=== PATIENT | female | born 1955 | race Caucasian/White ===

== ENCOUNTER 2016-06-16 08:34 | Inpatient (IN) | payer BC ==
[2016-06-16] VITALS (7 sets, daily range): BP systolic 125–174; BP diastolic 68–107; PULSE 80–107; RESP 16–22; TEMP 98–98.6; O2SAT 93–97
[~2016-06-16] VITALS: Ht 167.6 cm; Wt 120.0 kg
--- NOTE | 2016-06-16 08:57 | PD ---
HPI Chief Complaint: Flank/Kidney Pain Time Seen by Provider: 08:52 Travel History International Travel<30 days: No Contact w/Intl Traveler<30days: No Traveled to known affect area: No History of Present Illness HPI Patient is a 60-year-old female who presents to emergency room with complaints of left-sided flank pain. Patient reports that she woke up around 4 AM this morning with pain to her left flank. Patient reports that symptoms feel sharp and stabbing, symptoms are nonradiating in nature. Patient reports that she has been having nausea and vomiting with her pain. Patient denies constipation or diarrhea. Patient denies fevers, reports chills. Patient reports history of kidney stones in the past, reports that she had a right-sided kidney stone for very long time which ultimately required lithotripsy. Patient with no chest pain or shortness breath. Patient with no other complaints. PFSH Past Medical History Diminished Hearing: No Kidney Stones: Yes Tetanus Vaccination: Unknown ?: Not Past Surgical History Other Surgery: Yes (lithotripsy) Family History Family History: Social History Alcohol Use: No Tobacco Use: Yes (1 PPD) Substance Use: No Allergies-Medications (Allergen,Severity, Reaction): Coded Allergies: No Known Allergies (Unverified , 06/16/16) Reported Meds & Prescriptions Reported Meds & Active Scripts Active No Active Prescriptions or Reported Medications Review of Systems General / Constitutional: No: Fever Eyes: No: Visual changes HENT: No: Headaches Cardiovascular: No: Chest Pain or Discomfort Respiratory: No: Shortness of Breath Gastrointestinal: Positive: Nausea, Vomiting, Abdominal Pain (left-sided flank pain) Genitourinary: No: Dysuria Musculoskeletal: No: Pain Skin: No Rash Neurologic: No: Weakness Psychiatric: No: Depression Endocrine: No: Polydipsia Hematologic/Lymphatic: No: Easy Bruising Physical Exam Narrative GENERAL: Patient in mild distress SKIN: Warm and dry. HEAD: Atraumatic. Normocephalic. EYES: Pupils equal and round. No scleral icterus. No injection or drainage. ENT: No nasal bleeding or discharge. Mucous membranes pink and moist. NECK: Trachea midline. No JVD. CARDIOVASCULAR: Regular rate and rhythm. No murmur appreciated. RESPIRATORY: No accessory muscle use. Clear to auscultation. Breath sounds equal bilaterally. GASTROINTESTINAL: Abdomen soft, non-tender, nondistended. Hepatic and splenic margins not palpable. MUSCULOSKELETAL: No obvious deformities. No clubbing. No cyanosis. No edema. Patient with left-sided flank pain NEUROLOGICAL: Awake and alert. No obvious cranial nerve deficits. Motor grossly within normal limits. Normal speech. PSYCHIATRIC: Appropriate mood and affect; insight and judgment normal. Data Data Last Documented VS Vital Signs Date Time Temp Pulse Resp B/P Pulse Ox O2 Delivery O2 Flow Rate FiO2 06/16/16 10:39 107 16 154/73 93 Nasal Cannula 3 06/16/16 08:44 98.6 Orders Urinalysis - C+S If Indicated (06/16/16 08:44) Complete Blood Count With Diff (06/16/16 08:58) Comprehensive Metabolic Panel (06/16/16 08:58) Lipase (06/16/16 08:58) Prothrombin Time / Inr (Pt) (06/16/16 08:58) Act Partial Throm Time (Ptt) (06/16/16 08:58) Ct Abd/Pel W/O Iv Contrast (06/16/16 08:58) Iv Access Insert/Monitor (06/16/16 08:58) Morphine Inj (Morphine Inj) (06/16/16 09:00) Ondansetron Inj (Zofran Inj) (06/16/16 09:00) Sodium Chlor 0.9% 1000 Ml Inj (Ns 1000 M (06/16/16 08:58) Sodium Chloride 0.9% Flush (Ns Flush) (06/16/16 09:00) Urine Culture (06/16/16 08:52) Ceftriaxone Inj (Rocephin Inj) (06/16/16 09:30) Ondansetron Inj (Zofran Inj) (06/16/16 10:15) Hydromorphone Pf Inj (Dilaudid Pf Inj) (06/16/16 10:15) Ketorolac Inj (Toradol Inj) (06/16/16 10:15) Labs Laboratory Tests Test 06/16/16 06/16/16 08:52 09:00 Urine Collection Type CLEAN CATCH Urine Color YELLOW Urine Turbidity MARKED Urine pH 5.5 Urine Specific [place] 1.032 Urine Protein 100 mg/dL Urine Glucose (UA) NEG mg/dL Urine Ketones 15 mg/dL Urine Occult Blood LARGE Urine Nitrite NEG Urine Bilirubin NEG Urine Leukocyte Esterase NEG Urine RBC 100-200 /hpf Urine WBC 3-5 /hpf Urine Squamous Epithelial 6-8 /hpf Cells Urine Amorphous Sediment MOD Urine Bacteria MOD /hpf Microscopic Urinalysis Comment CULTURE INDICATED Urine Collection Time 0852 White Blood Count 13.1 TH/MM3 Red Blood Count 5.20 MIL/MM3 Hemoglobin 14.7 GM/DL Hematocrit 45.0 % Mean Corpuscular Volume 86.5 FL Mean Corpuscular Hemoglobin 28.3 PG Mean Corpuscular Hemoglobin 32.7 % Concent Red Cell Distribution Width 13.3 % Platelet Count 346 TH/MM3 Mean Platelet Volume 7.9 FL Neutrophils (%) (Auto) 82.8 % Lymphocytes (%) (Auto) 9.9 % Monocytes (%) (Auto) 4.7 % Eosinophils (%) (Auto) 0.3 % Basophils (%) (Auto) 2.3 % Neutrophils # (Auto) 10.9 TH/MM3 Lymphocytes # (Auto) 1.3 TH/MM3 Monocytes # (Auto) 0.6 TH/MM3 Eosinophils # (Auto) 0.0 TH/MM3 Basophils # (Auto) 0.3 TH/MM3 CBC Comment DIFF FINAL Differential Comment Prothrombin Time 10.4 SEC Prothromb Time International 0.9 RATIO Ratio Activated Partial 26.8 SEC Thromboplast Time Sodium Level 143 MEQ/L Potassium Level 3.9 MEQ/L Chloride Level 107 MEQ/L Carbon Dioxide Level 25.4 MEQ/L Anion Gap 11 MEQ/L Blood Urea Nitrogen 17 MG/DL Creatinine 0.91 MG/DL Estimat Glomerular Filtration 63 ML/MIN Rate Random Glucose 151 MG/DL Calcium Level 9.2 MG/DL Total Bilirubin 0.4 MG/DL Aspartate Amino Transf 27 U/L (AST/SGOT) Alanine Aminotransferase 46 U/L (ALT/SGPT) Alkaline Phosphatase 105 U/L Total Protein 8.3 GM/DL Albumin 3.7 GM/DL Lipase 140 U/L [facility] Medical Decision Making Medical Screen Exam Complete: Yes Emergency Medical Condition: Yes Interpretation(s) Vital Signs Date Time Temp Pulse Resp B/P Pulse Ox O2 Delivery O2 Flow Rate FiO2 06/16/16 08:44 98.6 96 16 174/107 97 Differential Diagnosis Nephrolithiasis, pyelonephritis, cystitis, UTI, musculoskeletal pain, electrolyte abnormality Narrative Course 60-year-old female who presents to emergency room with complaints of acute onset left sided flank pain which began around 4 AM this morning. Patient with nausea vomiting and chills with symptoms. Patient with history of kidney stones in the past. Patient denies hematuria, dysuria, urinary urgency or frequency at this time. Plan for IV line, obtain CBC, BMP, UA to look for signs of infection and to evaluate for kidney function. CAT scan of the abdomen and pelvis without IV contrast ordered to evaluate for possible kidney stone. Will hydrate patient with fluids, will give her nausea medications as well as pain medications. CBC: wbc: 13.1 Hemoglobin 14.7 Hematocrit 45 Platelets 346 Percent neutrophils 82.8 BMP: Sodium 143 Potassium 3.9 BUN 17 Creatinine 0.91 Carbon dioxide 25.4 Chloride 107 PT 10.4 PTT 26.3 INR 0.9 UA: Positive for 100 protein, 15 ketones, large blood, 100 200 red blood cells, 3-5 WBC, moderate sediment, moderate bacteria Patient ordered a dose of IV Rocephin, urine culture sent CT of the abdomen and pelvis without IV contrast shows left-sided objective uropathy with a 6 mm x 3.5 mm calculus in the proximal left ureter and mild left -sided hydronephrosis. Additional tiny calculi in the left kidney. Diffuse hepatic steatosis. Chronic sclerosis of both SI joints. Colonic diverticulosis without diverticulitis. Tiny fat-containing umbilical hernia. A copy of patient's CAT scan report given to patient she will need to follow with urologist as outpatient. Patient reevaluated, patient reports that she continues to have increased pain, reports intractable nausea vomiting. Plan to remedicate patient at this time. Call made to urology discussed case with Dr New with Urology, if pts pain cannot be controlled, pt will need to be admitted to [facility] for possible urologic intervention Patient reevaluated, patient and I feel comfortable going home. Reports the pain is too severe, will admit to medicine service at [facility] for possible urological intervention case discussed with Dr Suarez who accepts pt to [facility] Physician Communication Physician Communication Case with history of urologist as well as Dr. Suarez Diagnosis Primary Impression: Kidney stone on left side Additional Impressions: Hydronephrosis of left kidney Hepatic steatosis Umbilical hernia Qualified Code: K42.9 - Umbilical hernia without obstruction and without gangrene Admitting Information Admitting Physician Requests: Admit Scripts No Active Prescriptions or Reported Meds Zuleyka Marcano DO Jun 16, 2016 08:57
[2016-06-16] MEDS ORDERED: SODIUM CHLOR 0.9% 1000 ML INJ 1,000 ML IV SCH (08:58)
[2016-06-16] MEDS ORDERED: SODIUM CHLORIDE 0.9% FLUSH 5 ML FLUSH IVF PRN (09:00)
[2016-06-16] MEDS ORDERED: ONDANSETRON HCL 4 MG/2 ML VIAL IVP ONE ×2 (09:00→10:15)
[2016-06-16] MEDS ORDERED: MORPHINE SULFATE 4 MG/ML INJ IV PUSH ONE (09:00)
[2016-06-16 09:02] LABS: BLOOD, URINE LARGE (NEG); GLUCOSE,URINE NEG (NEG); KETONE, URINE 15 mg/dL (NEG); NITRITE,URINE NEG (NEG); PH, URINE 5.5 (5.0-8.5)
[2016-06-16 09:03] LABS: METHOD OF COLLECTION CLEAN CATCH; URINE COLOR YELLOW (YELLW/STRAW)
[2016-06-16 09:07] LABS: BACTERIA, URINE MOD /hpf; COMMENT (UR) CULTURE INDICATED; COMMENT2 (UR) MUCOUS PRESENT; CULTURE IF INDICATED CULTURE INDICATED; RBC, URINE 100-200 /hpf (0-3)
[2016-06-16 09:11] LABS: AUTOMATED NEUTROPHIL # 10.9 TH/MM3 (1.8-7.7); BASOPHIL # 0.3 TH/MM3 (0-0.2); BASOPHIL % 2.3 % (0.0-2.0); EOSINOPHIL % 0.3 % (0.0-4.0); LYMPH % 9.9 % (9.0-44.0); LYMPHOCYTE # 1.3 TH/MM3 (1.0-4.8); MEAN CELL VOLUME 86.5 FL (80.0-100.0); MEAN CORPUSCULAR HEMOGLOBIN 28.3 PG (27.0-34.0); MEAN CORPUSCULAR HGB CONC 32.7 % (32.0-36.0); MONO % 4.7 % (0.0-8.0); NEUT % 82.8 % (16.0-70.0); PLATELET COUNT 346 TH/MM3 (150-450); RED CELL DISTRIBUTION WIDTH 13.3 % (11.6-17.2); WHITE BLOOD COUNT 13.1 TH/MM3 (4.0-11.0)
[2016-06-16 09:19] LABS: HEMO FLAGS DIFF FINAL
[2016-06-16 09:29] LABS: APTT (PATIENT) 26.8 SEC (24.3-30.1); INTERNATIONAL NORMALIZED RATIO 0.9 RATIO; PROTHROMBIN TIME - PATIENT 10.4 SEC (9.8-11.6)
[2016-06-16] MEDS ORDERED: cefTRIAXone INJ 1,000 MG in SODIUM CHLORIDE 0.9% INJ 100 ML IV ONE (09:30)
--- NOTE | 2016-06-16 09:48 | RADHPO ---
EXAM DATE/TIME: 06/16/2016 09:30 [facility] COMPARISON: No previous studies available for comparison. INDICATIONS : Left flank pain since this morning. ORAL CONTRAST: No oral contrast ingested. RADIATION DOSE: 24.53 CTDIvol (mGy) MEDICAL HISTORY : Renal calculi. SURGICAL HISTORY : Lithotripsy. ENCOUNTER: Initial ACUITY: 1 day PAIN SCALE: 4/10 LOCATION: Left flank TECHNIQUE: Volumetric scanning of the abdomen and pelvis was performed. Using automated exposure control and ad justment of the mA and/or kV according to patient size, radiation dose was kept as low as reasonably achievable to obtain optimal diagnostic quality images. FINDINGS: There is a 6 mm x 3.5 mm calculus in the proximal left ureter with mild left-sided hydronephrosis, pe rinephric stranding and obstructive uropathy. There are 2 additional tiny 1 mm nonobstructing calculi in the left kidney. No right renal calculi or obstructive uropathy. Lung bases clear. Diffuse hepatic steatosis. Spleen, adrenals, pancreas unremarkable. No calcified ga llstones or biliary ductal dilatation. Small fat-containing umbilical hernia. Appendix normal. Modera te degenerative disc disease in the lumbar spine. Sclerosis at the sacroiliac joints characteristic o f chronic sacroiliitis. CONCLUSION: 1. Left-sided obstructive uropathy with a 6 mm x 3.5 mm calculus in the proximal left ureter and mild left-sided hydronephrosis. Additional tiny nonobstructing calculi left kidney. 2. Diffuse hepatic steatosis. 3. 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 4. Colonic diverticulosis without diverticulitis. Tiny fat containing umbilical hernia. Kei Arriaga MD on June 16, 2016 at 9:39 Board Certified Radiologist. This report was verified electronically.
[2016-06-16 09:57] LABS: BICARBONATE 25.4 MEQ/L (21.0-32.0); BLOOD UREA NITROGEN 17 MG/DL (7-18)
[2016-06-16 10:00] LABS: ALT (GPT) 46 U/L (10-53); AST (GOT) 27 U/L (15-37); GLOMERULAR FILTRATION RATE 63 ML/MIN (>89)
[2016-06-16 10:01] LABS: TOTAL BILIRUBIN ADULT 0.4 MG/DL (0.2-1.0)
[2016-06-16 10:03] LABS: ALKALINE PHOSPHATASE 105 U/L (45-117)
[2016-06-16 10:04] LABS: ANION GAP 11 MEQ/L (5-15); CHLORIDE 107 MEQ/L (98-107); POTASSIUM 3.9 MEQ/L (3.5-5.1); SODIUM (NA) 143 MEQ/L (136-145)
[2016-06-16] MEDS ORDERED: HYDROmorphone HCL PF 1 MG/ML VIAL IVS ONE (10:15)
[2016-06-16] MEDS ORDERED: KETOROLAC TROMETHAMINE 30 MG/ML (IVP) VIAL IV PUSH ONE (10:15)
[2016-06-16] MEDS ORDERED: ACETAMINOPHEN 325 MG TAB PO PRN (11:00)
[2016-06-16] MEDS ORDERED: NALOXONE HCL 0.4 MG/ML AMP IV PRN (11:00)
[2016-06-16] MEDS ORDERED: cloNIDine HCL 0.1 MG TAB PO PRN (11:00)
[2016-06-16] MEDS ORDERED: MAGNESIUM HYDROXIDE SUSP 30 ML CUP PO PRN (11:00)
[2016-06-16] MEDS ORDERED: SODIUM CHLORIDE 0.9% FLUSH 5 ML FLUSH FLUSH PRN (11:00)
[2016-06-16] MEDS ORDERED: ONDANSETRON HCL 4 MG/2 ML VIAL IVP PRN (11:00)
[2016-06-16] MEDS: SODIUM CHLOR 0.9% 1000 ML INJ 1,000 ML IV SCH ×2 (11:20→20:52)
[2016-06-16] MEDS: LEVOFLOXACIN 750 MG TAB PO SCH (11:24)
[2016-06-16] MEDS: DOCUSATE SODIUM 100 MG CAP PO SCH ×2 (11:24→19:31)
--- NOTE | 2016-06-16 17:10 | HHI.HP ---
[facility] Service [facility] Primary Care Physician Non-Staff Admission Diagnosis obstructive left sided kidney stone with intractable pain Diagnoses: Travel History International Travel<30 Days: No Contact w/Intl Traveler <30 Da: No Traveled to Known Affected Are: No History of Present Illness This is a pleasant 60 year-old female with past medical history of kidney stone 20 years ago treated with lithotripsy who presents with a one-day history of left flank pain that woke her from sleep at 4 AM this morning and was severe. The patient denied any vomiting but did complain of nausea. The pain did not radiate. No provocative or alleviating factors. The patient presented to the ER where abdominal CT scan revealed a left proximal 4 x 6 mm ureteral stone with associated left hydronephrosis. The patient has received pain medications and currently is much more comfortable. She is awaiting transfer to [facility] for urology consultation and intervention. 10 point review systems is otherwise negative. Past Family Social History Past Medical History As per history of present illness Reported Medications Allergies Coded Allergies Type Severity Reaction Last Updated Verified No Known Allergies 06/16/16 No Active Scripts Medications Dose Route/Sig Days Date Category No Active Prescriptions or Reported Medications Rx Allergies: Coded Allergies: No Known Allergies (Unverified , 06/16/16) Family History Unknown as she is adopted. Social History Patient does smoke 10 cigarettes per day. Denies alcohol or drug use. Physical Exam Vital Signs Vital Signs Date Time Temp Pulse Resp B/P Pulse Ox O2 Delivery O2 Flow Rate FiO2 06/16/16 14:58 81 16 134/80 96 Nasal Cannula 2 06/16/16 12:08 89 16 159/74 97 Nasal Cannula 2 06/16/16 10:39 107 16 154/73 93 Nasal Cannula 3 06/16/16 08:44 98.6 96 16 174/107 97 Physical Exam GENERAL: Well-nourished, well-developed pleasant obese CF patient. SKIN: Warm and dry. HEAD: Normocephalic. EYES: No scleral icterus. No injection or drainage. NECK: Supple, trachea midline. No JVD or lymphadenopathy. CARDIOVASCULAR: Regular rate and rhythm without murmurs, gallops, or rubs. RESPIRATORY: Breath sounds equal bilaterally. No accessory muscle use. GASTROINTESTINAL: Abdomen soft, non-tender, nondistended. EXTREMITIES: No cyanosis, or edema. NEUROLOGICAL: Awake, alert, and oriented x 3. Non-focal. Laboratory Laboratory Tests Test 06/16/16 06/16/16 08:52 09:00 Urine Collection Type CLEAN CATCH Urine Color YELLOW Urine Turbidity MARKED Urine pH 5.5 Urine Specific [place] 1.032 Urine Protein 100 Urine Glucose (UA) NEG Urine Ketones 15 Urine Occult Blood LARGE Urine Nitrite NEG Urine Bilirubin NEG Urine Leukocyte Esterase NEG Urine RBC 100-200 Urine WBC 3-5 Urine Squamous Epithelial 6-8 Cells Urine Amorphous Sediment MOD Urine Bacteria MOD Microscopic Urinalysis Comment CULTURE INDICATED Urine Collection Time 0852 White Blood Count 13.1 Red Blood Count 5.20 Hemoglobin 14.7 Hematocrit 45.0 Mean Corpuscular Volume 86.5 Mean Corpuscular Hemoglobin 28.3 Mean Corpuscular Hemoglobin 32.7 Concent Red Cell Distribution Width 13.3 Platelet Count 346 Mean Platelet Volume 7.9 Neutrophils (%) (Auto) 82.8 Lymphocytes (%) (Auto) 9.9 Monocytes (%) (Auto) 4.7 Eosinophils (%) (Auto) 0.3 Basophils (%) (Auto) 2.3 Neutrophils # (Auto) 10.9 Lymphocytes # (Auto) 1.3 Monocytes # (Auto) 0.6 Eosinophils # (Auto) 0.0 Basophils # (Auto) 0.3 CBC Comment DIFF FINAL Differential Comment Prothrombin Time 10.4 Prothromb Time International 0.9 Ratio Activated Partial 26.8 Thromboplast Time Sodium Level 143 Potassium Level 3.9 Chloride Level 107 Carbon Dioxide Level 25.4 Anion Gap 11 Blood Urea Nitrogen 17 Creatinine 0.91 Estimat Glomerular Filtration 63 Rate Random Glucose 151 Calcium Level 9.2 Total Bilirubin 0.4 Aspartate Amino Transf 27 (AST/SGOT) Alanine Aminotransferase 46 (ALT/SGPT) Alkaline Phosphatase 105 Total Protein 8.3 Albumin 3.7 Lipase 140 Date/Time Procedure Status Source Growth 06/16/16 08:52 Urine Culture Received Urine Clean Catch Pending Result Diagram: 06/16/16 0900 06/16/16 0900 Assessment and Plan Assessment and Plan -Left urolithiasis with hydronephrosis with 4 x 6 mm stone in the proximal left ureter. Will admit for pain control, IV fluids, urology consultation and possible intervention. -Complicated UTI. Status post Rocephin 1 g IV in the emergency department. Will treat with Levaquin. Follow-up urine culture. -Tobacco use. Patient counseled on cessation. -DVT prophylaxis with SCDs. Roz Pandey MD Jun 16, 2016 17:10
[2016-06-16] MEDS: HYDROmorphone HCL PF 1 MG/ML VIAL IV PRN (18:46)
[2016-06-16] MEDS: TAMSULOSIN HCL 0.4 MG CAP PO SCH (19:31)
[2016-06-16] MEDS: SODIUM CHLORIDE 0.9% FLUSH 5 ML FLUSH FLUSH SCH (19:32)
--- NOTE | 2016-06-16 22:09 | RADRPT ---
EXAM DATE/TIME: 06/16/2016 20:29 [facility] COMPARISON: CT ABDOMEN & PELVIS W/O CONTRAST, June 16, 2016, 9:30. INDICATIONS : Abdomen pain. Possible kidney stone. MEDICAL HISTORY : Renal calculi. SURGICAL HISTORY : Lithotripsy. ENCOUNTER: Initial ACUITY: 1 day PAIN SCORE: 8/10 LOCATION: Bilateral abdomen. FINDINGS: Phleboliths are seen over the left pelvis. No suspicious flank calcifications identified. Degenerativ e changes present in the spine, hips and SI joints. Nonspecific benign intestinal gas pattern. CONCLUSION: No suspicious flank calcifications visualized Russel Camejo MD on June 16, 2016 at 22:06 Board Certified Radiologist. This report was verified electronically.
[2016-06-17] VITALS (7 sets, daily range): BP systolic 118–145; BP diastolic 60–73; PULSE 67–80; RESP 16–20; TEMP 96–97.7; O2SAT 93–97
[2016-06-17] MEDS: KETOROLAC TROMETHAMINE 30 MG/ML (IVP) VIAL IV PUSH SCH ×3 (05:14→18:51)
[2016-06-17] MEDS: SODIUM CHLOR 0.9% 1000 ML INJ 1,000 ML IV SCH ×2 (05:15→18:51)
[2016-06-17] MEDS: ACETAMINOPHEN/HYDROcodone 325 MG/5 MG TAB PO PRN (05:18)
[2016-06-17 06:34] LABS: AUTOMATED NEUTROPHIL # 6.7 TH/MM3 (1.8-7.7); BASOPHIL % 0.5 % (0.0-2.0); EOSINOPHIL # 0.1 TH/MM3 (0-0.4); HEMATOCRIT 37.8 % (35.0-46.0); HEMO FLAGS DIFF FINAL; LYMPH % 21.9 % (9.0-44.0); LYMPHOCYTE # 2.1 TH/MM3 (1.0-4.8); MEAN CORPUSCULAR HGB CONC 32.9 % (32.0-36.0); MONO % 7.7 % (0.0-8.0); NEUT % 68.9 % (16.0-70.0); PLATELET COUNT 260 TH/MM3 (150-450); RED BLOOD COUNT 4.29 MIL/MM3 (4.00-5.30); WHITE BLOOD COUNT 9.8 TH/MM3 (4.0-11.0)
[2016-06-17 06:59] LABS: BICARBONATE 28.3 MEQ/L (21.0-32.0); POTASSIUM 3.8 MEQ/L (3.5-5.1)
[2016-06-17] MEDS: TAMSULOSIN HCL 0.4 MG CAP PO SCH (08:44)
[2016-06-17] MEDS: DOCUSATE SODIUM 100 MG CAP PO SCH ×2 (08:44→20:46)
[2016-06-17] MEDS: LEVOFLOXACIN 750 MG TAB PO SCH (11:00)
[2016-06-17] MEDS: HYDROmorphone HCL PF 1 MG/ML VIAL IV PRN (11:27)
--- NOTE | 2016-06-17 13:24 | MB ---
cc: RED CR MD DATE OF CONSULTATION 06/17/2016 REASON FOR CONSULTATION 1. Left mid ureteral stone with mild hydronephrosis 2. Left flank pain 3. UTI HISTORY OF PRESENT ILLNESS The patient is a 60-year-old female with a history of kidney stones in the past status post lithotripsy who presented to the emergency room yesterday morning with acute onset of severe left-sided flank pain. The patient initially woke up around 04:00 a.m. with pain in her left flank radiating to her left groin. She described the pain as sharp and stabbing with 10/10 nature. She states this was somewhat similar to her kidney stone pain in the past, but this was much more abrupt. She has also been having nausea and vomiting with her pain. She came to the ER where a CT of the abdomen and pelvis without contrast was done which showed a 6 mm left mid ureteral stone with mild hydronephrosis. She subsequently was admitted for painful urology was urology was consulted. She has had one kidney stones in the past which was on the right side and required a lithotripsy up in [place]. She is from [place] and currently on vacation. Currently, she denies any fevers or chills but still is having pain on her left side. She denies a history of genitourinary malignancies and she has does get rather frequent urinary tract infections. She denies dysuria or hematuria at this time. She is down here for vacation currently as mentioned above and is looking forwarded to driving back to [place] on her own. ALLERGIES NO KNOWN DRUG ALLERGIES. PAST HISTORY Significant for: 1. kidney stones 2. Status post lithotripsy FAMILY HISTORY Unknown, she is adopted. SOCIAL HISTORY Smokes one-pack per day. Denies alcohol or illicit drug use. Lives in [place] with her daughter. HOME MEDICATIONS Include, none. REVIEW OF SYSTEMS See HPI otherwise all systems reviewed and are otherwise negative. PHYSICAL EXAMINATION VITAL SIGNS: Temperature 97.7, pulse 76, respiratory rate 16, BP 127/64, sating 94% on room air. GENERAL: She is alert and oriented x3 in no acute distress, pleasant and cooperative lady who appears her stated age. HEAD: Normocephalic, atraumatic. EYES: No scleral icterus. Extraocular muscles intact. Normal external hearing. NECK: Supple. Trachea is midline. No JVD. LUNGS: Clear to auscultation bilaterally. No wheezes or rales. HEART: Regular rhythm. No murmurs. ABDOMEN: Soft, obese, nontender and nondistended with positive bowel sounds. No CVA tenderness. GENITOURINARY: No CVA tenderness bilateral. PELVIC: Exam not indicated at this time. EXTREMITIES: Nontender, no clubbing, cyanosis or edema. SKIN: No ulcers or rashes. PSYCH: Normal affect. NEUROLOGIC: Cranial nerves II-XII intact. Strength and range of motion 5/5 in all four extremities. LABS Show a white count of 9.8 down from 13.1, hemoglobin 12.4, hematocrit 37.8, platelet count 260. Chemistry sodium 143, potassium 3.8, chloride 108, bicarb 28.3, BUN 15, creatinine 0.70, glucose 85. Her urine shows a pH of 5.5, specific gravity 1.03, large blood with 102 red blood cells, moderate bacteria. Cultures are currently pending. IMAGING STUDIES Her CT of the abdomen pelvis without contrast images were reviewed. Agree with radiologist's report. The patient has a 6 x 3.55 mm calculus in her left mid to proximal ureter with mild hydronephrosis as well as a tiny nonsignificant left kidney. No masses or cysts on her kidneys were seen. ASSESSMENT AND PLAN The patient is a 60-year-old female with a history kidney stones who was admitted with acute onset of left flank pain, nausea and vomiting, found to have a 6-mm obstructing left ureteral stone. I discussed management options with her including a trial of passage versus possible uroscopy with laser lithotripsy and stent placement. I discussed the risks, benefits, and alternatives of each. Since she is expected to drive back to [place] on her own, I think it is unsafe for the patient to have a trial passage due to possibly having an acute stone episode while operating a motor vehicle. Therefore, we will set her up for cystoscopy, left retrograde pyelogram, possible left ureteroscopy with lithotomy and stent placement tomorrow. I discussed the risks, benefits and alternatives with her including inability to treat the stone, possible need for nephrostomy tube, the need for stent placed with subsequent stent removal in the future and treatment of stone in the future. These risks among others were discussed and all questions were answered. She agreed with the above plan. We will schedule her for the procedure tomorrow. We will also get an EKG as well. MD NATHALIA Rogers/LAURA /12:53 PM /1:04 PM
--- NOTE | 2016-06-17 15:02 | EKG ---
Date Performed: 06/17/2016 Time Performed: 13:49:23 PTAGE: 60 years EKG: Sinus rhythm WITH FIRST DEGREE AV BLOCK LOW QRS VOLTAGE IN PRECORDIAL LEADS ABNORMAL ECG NO PREVIOUS TRACING DOCTOR: David Marinelli Interpretating Date/Time 06/17/2016 15:01:06
--- NOTE | 2016-06-17 16:21 | HHI.PR ---
Subjective Remarks Follow-up left kidney stone/computer UTI/complicated UTI Objective Vitals Vital Signs Date Time Temp Pulse Resp B/P Pulse Ox O2 Delivery O2 Flow Rate FiO2 06/17/16 16:00 97.4 76 17 118/63 93 06/17/16 12:00 97.7 76 16 127/64 94 06/17/16 08:00 97.1 78 17 129/73 93 06/17/16 06:18 16 06/17/16 04:00 97.6 80 20 124/60 97 06/17/16 00:00 97.0 78 20 128/73 96 06/16/16 20:00 98.0 80 22 133/72 96 06/16/16 19:16 16 06/16/16 17:15 98.5 80 18 125/68 94 I/O 06/16/16 06/16/16 06/16/16 06/17/16 06/17/16 06/17/16 06:59 14:59 22:59 06:59 14:59 22:59 Intake Total 2060 ml 360 ml 1060 ml 720 ml Output Total 400 ml 600 ml 550 ml Balance 2060 ml -40 ml 460 ml 170 ml Intake Oral 960 ml 360 ml 440 ml 720 ml IV Total 1100 ml 620 ml Output Urine Total 400 ml 600 ml 550 ml # Voids 6 # Bowel Movements 0 0 0 0 Result Diagram: 06/17/16 0456 06/17/16 0456 Imaging Last Impressions Abdomen/Pelvis CT 06/16/16 0858 Signed Impressions: Service Date/Time: Thursday, June 16, 2016 09:30 - CONCLUSION: 1. Left- sided obstructive uropathy with a 6 mm x 3.5 mm calculus in the proximal left ureter and mild left-sided hydronephrosis. Additional tiny nonobstructing calculi left kidney. 2. Diffuse hepatic steatosis. 3. 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 4. Colonic diverticulosis without diverticulitis. Tiny fat containing umbilical hernia. Kei Arriaga MD Abdomen X-Ray 06/16/16 0000 Signed Impressions: Service Date/Time: Thursday, June 16, 2016 20:29 - CONCLUSION: No suspicious flank calcifications visualized Russel Camejo MD Objective Remarks GENERAL: NAD SKIN: Warm and dry. HEAD: Normocephalic. EYES: No scleral icterus. No injection or drainage. NECK: Supple, trachea midline. No JVD or lymphadenopathy. CARDIOVASCULAR: Regular rate and rhythm without murmurs, gallops, or rubs. RESPIRATORY: Breath sounds equal bilaterally. No accessory muscle use. GASTROINTESTINAL: Abdomen soft, non-tender, nondistended. MUSCULOSKELETAL: No cyanosis, or edema. BACK: Nontender without obvious deformity. +Left CVA tenderness. A/P Problem List: (1) Kidney stone on left side ICD Code: N20.0 Status: Acute Assessment and Plan 60 yrs old man with 1-Left urolithiasis with hydronephrosis with 4 x 6 mm stone in the proximal left ureter. Appreciate input from urology will plan for for cystoscopy, left retrograde, pyelogram, possible left ureteroscopy with lithotomy and stent placement tomorrow 06/28/16. Continue current pain management, IV fluid hydration. 2-Complicated UTI. Status post Rocephin 1 g IV in the emergency department. Continue with IV Levaquin. Follow-up urine culture. 3-Tobacco use. Patient counseled on cessation. 4-DVT prophylaxis with SCDs. Lewis Urbina MD Jun 17, 2016 16:21
[2016-06-17] MEDS: SODIUM CHLORIDE 0.9% FLUSH 5 ML FLUSH FLUSH SCH (20:44)
[2016-06-17] MEDS: ACETAMINOPHEN/HYDROcodone 325 MG/10 MG TAB PO PRN (23:03)
[2016-06-18] MEDS: KETOROLAC TROMETHAMINE 30 MG/ML (IVP) VIAL IV PUSH SCH ×5 (00:48→23:30)
[2016-06-18] MEDS: SODIUM CHLOR 0.9% 1000 ML INJ 1,000 ML IV SCH ×3 (02:40→19:56)
[2016-06-18 08:00] VITALS: BP 143/78; PULSE 73; RESP 17; TEMP 96.7; O2SAT 95
[2016-06-18] MEDS: TAMSULOSIN HCL 0.4 MG CAP PO SCH (08:47)
[2016-06-18] MEDS: DOCUSATE SODIUM 100 MG CAP PO SCH ×2 (08:47→19:56)
[2016-06-18] MEDS: SODIUM CHLORIDE 0.9% FLUSH 5 ML FLUSH FLUSH SCH ×2 (08:47→19:56)
--- NOTE | 2016-06-18 09:56 | HHI.PR ---
Subjective Remarks Follow-up left kidney stone 06/18/16-patient seen in exam; some mild left CVA pain otherwise stable. Currently nothing by mouth pending cystoscopy with possible stent placement today Objective Vitals Vital Signs Date Time Temp Pulse Resp B/P Pulse Ox O2 Delivery O2 Flow Rate FiO2 06/18/16 08:00 96.7 73 17 143/78 95 06/18/16 06:43 20 06/17/16 23:33 96.7 75 18 145/69 93 06/17/16 20:00 96.0 67 18 140/66 97 06/17/16 16:00 97.4 76 17 118/63 93 06/17/16 12:00 97.7 76 16 127/64 94 I/O 06/17/16 06/17/16 06/17/16 06/18/16 06/18/16 06/18/16 07:00 15:00 23:00 07:00 15:00 23:00 Intake Total 1060 ml 720 ml 380 ml 1600 ml Output Total 600 ml 550 ml 600 ml 800 ml Balance 460 ml 170 ml -220 ml 800 ml Intake Oral 440 ml 720 ml 380 ml IV Total 620 ml 1600 ml Output Urine Total 600 ml 550 ml 600 ml 800 ml # Bowel Movements 0 0 Result Diagram: 06/17/16 0456 06/17/16 0456 Imaging Last Impressions Abdomen/Pelvis CT 06/16/16 0858 Signed Impressions: Service Date/Time: Thursday, June 16, 2016 09:30 - CONCLUSION: 1. Left- sided obstructive uropathy with a 6 mm x 3.5 mm calculus in the proximal left ureter and mild left-sided hydronephrosis. Additional tiny nonobstructing calculi left kidney. 2. Diffuse hepatic steatosis. 3. 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 4. Colonic diverticulosis without diverticulitis. Tiny fat containing umbilical hernia. Kei Arriaga MD Abdomen X-Ray 06/16/16 0000 Signed Impressions: Service Date/Time: Thursday, June 16, 2016 20:29 - CONCLUSION: No suspicious flank calcifications visualized Russel Camejo MD Objective Remarks GENERAL: NAD SKIN: Warm and dry. HEAD: Normocephalic. EYES: No scleral icterus. No injection or drainage. NECK: Supple, trachea midline. No JVD or lymphadenopathy. CARDIOVASCULAR: Regular rate and rhythm without murmurs, gallops, or rubs. RESPIRATORY: Breath sounds equal bilaterally. No accessory muscle use. GASTROINTESTINAL: Abdomen soft, non-tender, nondistended. MUSCULOSKELETAL: No cyanosis, or edema. BACK: Nontender without obvious deformity. +Left CVA tenderness. A/P Problem List: (1) Kidney stone on left side ICD Code: N20.0 Status: Acute Assessment and Plan 60 yrs old man with 1-Left urolithiasis with hydronephrosis with 4 x 6 mm stone in the proximal left ureter. Appreciate input from urology will plan for for cystoscopy, left retrograde, pyelogram, possible left ureteroscopy with lithotomy and stent placement today 06/28/16. Continue nothing by mouth, current pain management, IV fluid hydration. 2-Complicated UTI. Status post Rocephin 1 g IV in the emergency department. However as urine culture negative will discontinue IV Levaquin. 3-Tobacco use. Patient counseled on cessation. 4-DVT prophylaxis with SCDs. Lewis Urbina MD Jun 18, 2016 09:56
[2016-06-18] MEDS: LACTATED RINGER'S 1000 ML IV SCH (10:09)
[2016-06-18] MEDS: LEVOFLOXACIN 750 MG TAB PO SCH (10:09)
[2016-06-18 12:00] VITALS: BP 139/74; PULSE 97; RESP 17; TEMP 96.6; O2SAT 94
[2016-06-18] MEDS ORDERED: ONDANSETRON HCL 4 MG/2 ML VIAL IV PUSH ONE (12:00)
[2016-06-18] MEDS ORDERED: PROPOFOL 200 MG/20 ML AMP IV ONE (12:00)
[2016-06-18] MEDS ORDERED: NEOSTIGMINE 3 MG/3 ML SYR IV ONE (12:00)
[2016-06-18] MEDS ORDERED: MIDAZOLAM HCL 2 MG/2 ML VIAL ONE (13:20)
[2016-06-18] MEDS ORDERED: FAMOTIDINE 20 MG/2 ML VIAL ONE (13:20)
[2016-06-18] MEDS ORDERED: IOHEXOL 350 MG/ML 50 ML BTL (for RAD DIAG) OTHER ONE (13:55)
[2016-06-18] MEDS ORDERED: *RESP: ALBUTEROL 2.5 MG/3 ML NEB (PRN) PERIprocedural Use ONLY NEB ONE (14:34)
--- NOTE | 2016-06-18 14:42 | PD.OP ---
Operative Report Date of Surgery: Jun 18, 2016 Preoperative Diagnosis: (1) Kidney stone on left side (2) Hydronephrosis of left kidney Postoperative Diagnosis: Procedure: cystoscopy, left retrograde pyelogram, left ureteroscopy, left ureteral stone removal, left ureteral stent insertion Anesthesia: General Surgeon: Delvis New Special Effects Designer(s): N/A Operation and Findings: See dictated report. Pull string in a.m. to remove ureteral stent. Delvis New MD Jun 18, 2016 14:42
[2016-06-18] MEDS ORDERED: DO NOT ADM ANY ANTICOAGULANT DRUGS XX PRN (15:00)
[2016-06-18 16:00] VITALS: BP 160/63; PULSE 64; RESP 16; TEMP 96.3; O2SAT 95
--- NOTE | 2016-06-18 19:32 | MP ---
cc: RED CR MD DATE OF SURGERY: 06/18/2016. PREOPERATIVE DIAGNOSIS: 1. Left ureteral stone with mild hydronephrosis. 2. Left flank pain. POSTOPERATIVE DIAGNOSIS: 1. Left ureteral stone with mild hydronephrosis. 2. Left flank pain. OPERATIVE PROCEDURE PERFORMED: 1. Cystourethroscopy. 2. Left retrograde pyelogram. 3. Left ureteroscopy. 4. Stone basketing with manipulation and removal of stone. 5. Insertion of left ureteral stent. SURGEON: Red Cr MD. ANESTHESIA: General. COMPLICATIONS: None. DRAINS: A 6 x 24 double-J stent with string attached. SPECIMENS: Left ureteral stone for analysis. DISPOSITION: Recovery. INDICATIONS FOR THE PROCEDURE: The patient is a 60-year-old female with history of kidney stones who presented with left flank pain. She had CT of the abdomen and pelvis without contrast done which shows a 7-mm obstructing left proximal ureteral stone with mild hydronephrosis. The patient is visiting from [place] for vacation and would be driving herself back to [place] in an [address] Given these findings, it was elected to proceed with definitive therapy of her stone.. After the risks, benefits, and alternatives were explained, the patient elected to proceed and informed consent was obtained. DESCRIPTION OF THE PROCEDURE IN DETAIL: The patient was properly identified and brought back to the cystoscopy suite where she was laid supine on the cystoscopy table. A proper time out was performed under the direction of anesthesiology. The patient was induced under general anesthetic. The patient had been receiving Levaquin 750 milligrams IV daily and therefore preoperative antibiotics were not indicated. She was then placed in the dorsal lithotomy position and prepped and draped in the normal sterile surgical fashion. A rigid cystoscope was then passed gently into her bladder through the urethra without any difficulty. A acosta cystoscopy was done which showed no evidence of bladder tumor, stones, diverticula or trabeculations. Both ureteral orifices were identified to be in normal anatomical location and of configuration. At this time, a 5-Macedonian open-ended ureteral catheter was inserted just inside the left ureteral orifice. Left retrograde pyelogram was performed which showed a filling defect in the mid to proximal left ureter with some mild hydronephrosis behind the stone with mild blunting of the left renal calyces. At this time through the indwelling ureteral catheter, I then passed a guidewire up into the left kidney under the guidance of fluoroscopy. The ureteral catheter was removed. Going alongside the wire, I then passed a semi-rigid soft self-dilating ureteroscope inside the left ureter. I was able to easily advance the scope all the way up into the left ureter until I came across the stone. It appeared to be elongated. Using a 0-tip basket, I was able to grasp the entire stone and remove it in its entirety. This was sent off for analysis. I then performed a second look. Again, I easily advanced the semi-rigid ureteroscope alongside the guidewire up into the left ureter. I then went all the way up to her ureteropelvic junction. Her ureter appeared to be wide open; however, there was some mild irritation and trauma noted. Therefore I made decision to leave a stent in for 24 hours. I then removed the ureteroscope and back loaded a 6 x 24 double-J stent up into her left kidney. Fluoroscopy showed a good proximal curl in her left renal pelvis. The wire was then removed showing a good curl in her bladder. The bladder was then drained and then the string that was attached to the distal portion of the left ureteral stent was then secured to the patient's mons pubis. This concluded the procedure. The patient was extubated and sent to recovery in stable condition. She will be transferred back to the floor for routine care. She will be instructed to remove the stent tomorrow morning. She then will followup with a urologist in [place]. MD NATHALIA Rogers/CAIO /2:45 PM /7:20 PM PATRICE
[2016-06-18] MEDS: ACETAMINOPHEN/HYDROcodone 325 MG/10 MG TAB PO PRN (19:57)
[2016-06-18 20:00] VITALS: BP 164/74; PULSE 80; RESP 20; TEMP 96; O2SAT 93
[2016-06-19] VITALS: BP 158/75; PULSE 65; RESP 19; TEMP 96; O2SAT 94
[2016-06-19] MEDS: LACTATED RINGER'S 1000 ML IV SCH (03:45)
[2016-06-19] MEDS: SODIUM CHLOR 0.9% 1000 ML INJ 1,000 ML IV SCH (04:23)
[2016-06-19] MEDS: KETOROLAC TROMETHAMINE 30 MG/ML (IVP) VIAL IV PUSH SCH (04:25)
[2016-06-19 08:00] VITALS: BP 144/83; PULSE 61; RESP 16; TEMP 97.7; O2SAT 92
[2016-06-19] MEDS: TAMSULOSIN HCL 0.4 MG CAP PO SCH (08:03)
[2016-06-19] MEDS: SODIUM CHLORIDE 0.9% FLUSH 5 ML FLUSH FLUSH SCH (08:03)
[2016-06-19] MEDS: DOCUSATE SODIUM 100 MG CAP PO SCH (08:03)
[2016-06-19] MEDS: ACETAMINOPHEN/HYDROcodone 325 MG/5 MG TAB PO PRN (10:17)
--- NOTE | 2016-06-19 10:25 | HHI.PR ---
Subjective Remarks Follow-up left kidney stone 06/18/16-patient seen in exam; some mild left CVA pain otherwise stable. Currently nothing by mouth pending cystoscopy with possible stent placement today 06/19/16-patient seen and examined; she is status post cystoscopy with ureteral stent placement in some mild left CVA discomfort for quite stable. Afebrile Objective Vitals Vital Signs Date Time Temp Pulse Resp B/P Pulse Ox O2 Delivery O2 Flow Rate FiO2 06/19/16 08:00 97.7 61 16 144/83 92 06/19/16 00:00 96.0 65 19 158/75 94 06/18/16 20:00 96.0 80 20 164/74 93 06/18/16 17:45 20 06/18/16 16:00 96.3 64 16 160/63 95 06/18/16 15:00 65 14 164/82 95 Room Air 06/18/16 14:45 53 14 149/78 99 Aerosol Mask 06/18/16 14:30 72 15 145/80 90 Nasal Cannula 2 06/18/16 14:24 97.8 93 14 139/81 91 Nasal Cannula 3 06/18/16 12:00 96.6 97 17 139/74 94 I/O 06/18/16 06/18/16 06/18/16 06/19/16 06/19/16 06/19/16 07:00 15:00 23:00 07:00 15:00 23:00 Intake Total 1600 ml 2345 ml 477 ml 1072 ml Output Total 800 ml 500 ml 300 ml 450 ml Balance 800 ml 1845 ml 177 ml 622 ml Intake Oral 0 ml 240 ml 240 ml IV Total 1600 ml 1445 ml 237 ml 832 ml Other 900 ml Output Urine Total 800 ml 500 ml 300 ml 450 ml # Bowel Movements 0 0 0 Result Diagram: 06/17/16 0456 06/17/16 0456 Imaging Last Impressions Abdomen/Pelvis CT 06/16/16 0858 Signed Impressions: Service Date/Time: Thursday, June 16, 2016 09:30 - CONCLUSION: 1. Left- sided obstructive uropathy with a 6 mm x 3.5 mm calculus in the proximal left ureter and mild left-sided hydronephrosis. Additional tiny nonobstructing calculi left kidney. 2. Diffuse hepatic steatosis. 3. 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 4. Colonic diverticulosis without diverticulitis. Tiny fat containing umbilical hernia. Kei Arriaga MD Abdomen X-Ray 06/16/16 0000 Signed Impressions: Service Date/Time: Thursday, June 16, 2016 20:29 - CONCLUSION: No suspicious flank calcifications visualized Russel Camejo MD Objective Remarks GENERAL: NAD SKIN: Warm and dry. HEAD: Normocephalic. EYES: No scleral icterus. No injection or drainage. NECK: Supple, trachea midline. No JVD or lymphadenopathy. CARDIOVASCULAR: Regular rate and rhythm without murmurs, gallops, or rubs. RESPIRATORY: Breath sounds equal bilaterally. No accessory muscle use. GASTROINTESTINAL: Abdomen soft, non-tender, nondistended. MUSCULOSKELETAL: No cyanosis, or edema. BACK: Nontender without obvious deformity. mild Left CVA tenderness. Procedures OPERATIVE PROCEDURE PERFORMED 06/28/16 1. Cystourethroscopy. 2. Left retrograde pyelogram. 3. Left ureteroscopy. 4. Stone basketing with manipulation and removal of stone. 5. Insertion of left ureteral stent. A/P Problem List: (1) Kidney stone on left side ICD Code: N20.0 Status: Acute Assessment and Plan 60 yrs old man with 1-Left urolithiasis with hydronephrosis with 4 x 6 mm stone in the proximal left ureter. Appreciate input from urology and s/p cystoscopy, left retrograde , pyelogram, possible left ureteroscopy with lithotomy and stent placement 06/28. Continue nothing by mouth, current pain management, IV fluid hydration. 2-Complicated UTI. Status post Rocephin 1 g IV in the emergency department. However as urine culture negative will discontinue IV Levaquin. 3-Tobacco use. Patient counseled on cessation. 4-DVT prophylaxis with SCDs. Lewis Urbina MD Jun 19, 2016 10:25
[2016-06-19] MEDS ORDERED: DOCU1CAP39 PO (10:29)
[2016-06-19] MEDS ORDERED: TAMS5CAP PO (10:29)
--- NOTE | 2016-06-19 10:32 | HHI.DS ---
Discharge Summary Admission Date Jun 16, 2016 at 10:55 Discharge Date: Jun 19, 2016 Admitting Diagnosis obstructive left sided kidney stone with intractable pain (1) Kidney stone on left side ICD Code: N20.0 Procedures OPERATIVE PROCEDURE PERFORMED 06/28/16 1. Cystourethroscopy. 2. Left retrograde pyelogram. 3. Left ureteroscopy. 4. Stone basketing with manipulation and removal of stone. 5. Insertion of left ureteral stent. Brief History - From Admission This is a pleasant 60 year-old female with past medical history of kidney stone 20 years ago treated with lithotripsy who presents with a one-day history of left flank pain that woke her from sleep at 4 AM this morning and was severe. The patient denied any vomiting but did complain of nausea. The pain did not radiate. No provocative or alleviating factors. The patient presented to the ER where abdominal CT scan revealed a left proximal 4 x 6 mm ureteral stone with associated left hydronephrosis. The patient has received pain medications and currently is much more comfortable. She is awaiting transfer to [facility] for urology consultation and intervention. 10 point review systems is otherwise negative. CBC/BMP: 06/17/16 0456 06/17/16 0456 Significant Findings Laboratory Tests Test 06/17/16 04:56 Chloride Level 108 MEQ/L (98-107) Estimat Glomerular Filtration 86 ML/MIN (>89) Rate Calcium Level 8.4 MG/DL (8.5-10.1) Imaging Last Impressions Abdomen/Pelvis CT 06/16/16 0858 Signed Impressions: Service Date/Time: Thursday, June 16, 2016 09:30 - CONCLUSION: 1. Left- sided obstructive uropathy with a 6 mm x 3.5 mm calculus in the proximal left ureter and mild left-sided hydronephrosis. Additional tiny nonobstructing calculi left kidney. 2. Diffuse hepatic steatosis. 3. 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 4. Colonic diverticulosis without diverticulitis. Tiny fat containing umbilical hernia. Kei Arriaga MD Abdomen X-Ray 06/16/16 0000 Signed Impressions: Service Date/Time: Thursday, June 16, 2016 20:29 - CONCLUSION: No suspicious flank calcifications visualized Russel Camejo MD PE at Discharge GENERAL: NAD SKIN: Warm and dry. HEAD: Normocephalic. EYES: No scleral icterus. No injection or drainage. NECK: Supple, trachea midline. No JVD or lymphadenopathy. CARDIOVASCULAR: Regular rate and rhythm without murmurs, gallops, or rubs. RESPIRATORY: Breath sounds equal bilaterally. No accessory muscle use. GASTROINTESTINAL: Abdomen soft, non-tender, nondistended. MUSCULOSKELETAL: No cyanosis, or edema. BACK: Nontender without obvious deformity. mild Left CVA tenderness. Hospital Course Patient admitted secondary to left flank pain diagnosed with Left urolithiasis with hydronephrosis with 4 x 6 mm stone in the proximal left ureter for which urology was consulted and patient underwent cystoscopy, left retrograde, pyelogram, possible left ureteroscopy with lithotomy and stent placement on 10/28. She was started on Flomax and provided pain management. Initially treated for abnormal UA with IV antibiotics however as urine culture negative this was discontinued. DVT was provided. Prior to discharge patient condition improved and vitals remained stable. 4-DVT prophylaxis with SCDs. Pt Condition on Discharge: Stable Discharge Disposition: Discharge Home Discharge Time: <= 30 minutes Discharge Instructions DIET: Follow Instructions for: Heart Healthy Diet Activities you can perform: Regular-No Restrictions Follow up Referrals: PCP Follow-up - 1 Week Urology New Medications: Docusate Sodium (Dok) 100 Mg Cap 100 MG PO Q12HR Bowel Management #30 CAP Tamsulosin (Flomax) 0.4 Mg Cap 0.4 MG PO DAILY Urinary Symptom Managemen #30 Ref 7 CAP Additional Information Percocet 5-325 prescription written by urology Lewis Urbina MD Jun 19, 2016 10:32
[2016-06-19] MEDS ORDERED: PERC5TAB12 PO (11:04)
[2016-06-19] MEDS ORDERED: COLA100C3 PO (11:04)
[2016-06-19] MEDS ORDERED: LEVA750T PO (11:04)
== END 2016-06-19 12:12 | disposition home or self-care (01) | DRG 669 ==
LOC: PHED 08:34 → PHEDA 10:55 → N07A 17:11
PROVIDERS: ADMIT Hospitalist; ATTEND Hospitalist
PROC: 0T778DZ Dilation of Left Ureter with Intraluminal Device, Via Natural or Artificial Opening Endoscopic (ICD-10-PCS; 2016-06-18)
PROC: BT1FZZZ Fluoroscopy of Left Kidney, Ureter and Bladder (ICD-10-PCS; 2016-06-18)
PROC: 0TC78ZZ Extirpation of Matter from Left Ureter, Via Natural or Artificial Opening Endoscopic (ICD-10-PCS; principal; 2016-06-18 13:23)
DX: N13.2 Hydronephrosis with renal and ureteral calculous obstruction (principal); N39.0 Urinary tract infection, site not specified; K42.9 Umbilical hernia without obstruction or gangrene; F17.200 Nicotine dependence, unspecified, uncomplicated; K57.30 Diverticulosis of large intestine without perforation or abscess without bleeding; Z86.73 Personal history of transient ischemic attack (TIA), and cerebral infarction without residual deficits; Z87.440 Personal history of urinary (tract) infections
CPT/HCPCS: 74000; 74176; 74420; 76000; 80048; 80053; 81001; 82370; 83690; 85025; 85610; 85730; 87086; 88300; 93005; 94664; 96361; 96365; 96375; 96376; C1769; C2617; J0696; J1170; J1885; J2250; J2270; J2405; J2710; J3010; J7030; J7120; J7613; Q9967